=== PATIENT | male | born 1955 | race Caucasian/White ===

== ENCOUNTER → 2020-11-15 15:41 | Outpatient (CLI) | payer OTHER, SELFPAY ==
--- NOTE | ~2020-11-15 | CT_ITS ---
EXAMINATION: CT lung screening DATE: 11/15/2020 15:56 INDICATION: Personal history of tobacco dependence, current smoker with 50 pack year history TECHNIQUE: Computed tomography (CT) of the chest was performed without intravenous contrast. The dose -length product (DLP) was 184.31 mGy-cm. Automated exposure control and iterative reconstruction tech [employer] were employed. COMPARISON: None FINDINGS: There is mild emphysema. There are scattered small nodules with an upper lung zone predomin ance. The largest measures 3 mm in the right upper lobe on image 30. The lungs are free of acute opac ities. There is no pleural effusion or pneumothorax. Moderate thoracic spondylosis is noted. There is calcified coronary artery atherosclerosis. There is atrophy of the left kidney. IMPRESSION: 1. Lung-RADS category 2S: Benign appearance or behavior. Continue annual screening with noncontrast l ow-dose chest CT in 12 months. 2. Left kidney atrophy. Reviewed, dictated and finalized at location A. IMPRESSION: 1. Lung-RADS category 2S: Benign appearance or behavior. Continue annual screen ing with noncontrast low-dose chest CT in 12 months. 2. Left kidney atrophy.
== END ==
PROVIDERS: PCP Physician Assistant; Visit Provider Physician Assistant
DX: Z12.2 Encounter for screening for malignant neoplasm of respiratory organs (principal); Z87.891 Personal history of nicotine dependence
CPT/HCPCS: 71271

== ENCOUNTER 2024-01-03 12:00 | Outpatient (CLI) | payer MEDICARE, SELFPAY ==
[2024-01-03 13:01] LABS: Appearance Urine Clear (Clear); Bacteria Urine None Seen /hpf; Bilirubin Urine Negative (Negative); Blood Urine Negative (Negative); Color Urine Yellow (Yellow); Glucose Urine UA Negative (Negative); Ketones Urine Negative (Negative); Leukocyte Esterase Ur Negative LEU/UL (Negative); Nitrate Urine Negative (Negative); Non Pathogenic Casts 0-2; Protein Urine Trace mg/dL (Negative); RBC Urine 0-2 /hpf (0-2); Specific Grav Ur 1.023 (1.001-1.035); Squamous Epithelial Cell Urine None Seen /hpf (Few); Urobilinogen Urine 0.2 mg/dL (<2.0); WBC Urine 0-5 /hpf (0-3)
[2024-01-03 13:07] LABS: Add Urine Microscopic? YES
[2024-01-03 13:15] LABS: Hematocrit 40.6 % (42.0-52.0); Hemoglobin 13.2 g/dL (14.0-18.0); Mean Corpuscular HGB Conc 32.5 g/dl (32-36); Mean Corpuscular Hemoglobin 28.1 pg (26-34); Mean Corpuscular Volume 86.4 fl (80-100); Mean Platelet Volume 10.2 fl (7.4-10.4); Platelet Count Result 266 k/mm3 (150-375); Red Cell Distribution Width 13.3 % (11.5-14.5); White Blood Count 10.7 K/mm3 (4.5-10.0)
[2024-01-03 13:17] LABS: Creatinine Urine 199.8 mg/dL; Total Protein Urine Random 8 mg/dL; Ur Ttl Prot Creatinine Ratio 0.04 mg/mg (0-0.20)
[2024-01-03 13:38] LABS: Albumin Level 4.5 g/dL (3.5-5.1); Anion Gap 11 mmol/L (4-12); Blood Urea Nitrogen 20 mg/dL (9-20); Calcium 9.3 mg/dL (8.4-10.2); Carbon Dioxide 22 mmol/L (22-30); Chloride 106 mmol/L (98-107); Creatine Kinase 56 U/L (55-170); Estimated Glomerular Filt Rate 51; Glucose 134 mg/dL (65-110); Phosphorus 3.7 mg/dL (2.5-4.5); Potassium 4.2 mmol/L (3.4-5.0); Sodium 139 mmol/L (137-145)
[2024-01-03 14:00] LABS: Complement C3 154 mg/dL (88-165)
[2024-01-03 14:05] LABS: Erythrocyte Sedimentation Rate 24 mm/hr (0-20)
[2024-01-04 12:04] LABS: Kappa\\Lambda Light Chains 1.39 (0.26-1.65); Lambda Light Chain 22.6 mg/L (5.7-26.3)
[2024-01-05 14:19] LABS: Complement Total CH50 >60 U/mL (31-60)
[2024-01-11 22:13] LABS: Immunofixation, Serum Normal pattern.
== END 2024-01-03 12:01 | disposition home or self-care (01) ==
PROVIDERS: PCP Internal Medicine; Visit Provider Internal Medicine Nephrology
DX: N18.31 Chronic kidney disease, stage 3a (principal); R93.89 Abnormal findings on diagnostic imaging of other specified body structures
CPT/HCPCS: 36415; 80069; 81001; 82550; 82570; 83883; 83970; 84156; 85027; 85652; 86038; 86160; 86162; 86334

== ENCOUNTER 2024-01-05 12:05 | Outpatient (CLI) | payer MEDICARE, SELFPAY ==
[2024-01-05 14:50] LABS: Total Volume 24 Hour Urine 1500 ml; Urea Nitrogen 24 Hour Urine 9.7 G/DAY (12-20)
== END 2024-01-05 12:06 | disposition home or self-care (01) ==
PROVIDERS: PCP Internal Medicine; Visit Provider Internal Medicine Nephrology
DX: N18.31 Chronic kidney disease, stage 3a (principal)
CPT/HCPCS: 81050; 84540; 86335

== ENCOUNTER 2025-07-09 12:57 | Outpatient (CLI) | payer OTHER, SELFPAY ==
--- NOTE | 2025-07-09 14:59 | WPDSIXMINUTE ---
Six Minute Walk Procedure Procedure Performed Pulmonary Stress Test (6 min walk) Six Minute Walk Six Minute Walk: This is a 6 minute walk test. The test was performed and interpreted in accordance with the 2014 ERS/ATS task force guidelines. Findings: The patient's resting room air oxygen saturation measured by pulse oximetry was 95%, the heart rate was 73 bpm, and the modified Bandar dyspnea score was 1. Patient ambulated for 320 meters and oxygen saturation remained 90 to 92%. At the end of the study the heart rate was 106 bpm and the modified Bandar dyspnea score was 2. The patient did not qualify for supplemental oxygen at rest or with ambulation. There are no prior studies for comparison.
--- NOTE | 2025-07-09 15:00 | WPDPFTINT ---
PFT Procedure Performed PFT Procedure Performed Spirometry with Pre/Post Bronchodilator Plethysmography (Lung Vol) Diffusing Cap (DLCO) Flow Vol Loop PFT Interpretation This is a pulmonary function test with pre and post-bronchodilator spirometry, plethysmography and diffusing capacity. The test was performed and results interpreted in accordance with the 2019 and 2005 ATS/ERS Task Force guidelines respectively using the Global Lung Function Initiative-2012 reference equations. Patient demonstrated good effort and cooperation. Reproducibility criteria were met. The quality of the pre bronchodilator spirometry maneuver was Grade A and post bronchodilator spirometry maneuver was Grade A. Findings: Spirometry: There is decreased maximal expiratory airflow at all lung volumes with concave expiratory flow tracing. The contour the inspiratory flow tracing is normal. The pre bronchodilator FVC is 3.17 L, 71% predicted. The pre bronchodilator FEV1 is 1.47 L, 44% predicted. The pre bronchodilator FEV1: FVC ratio is 46%. The post bronchodilator FVC is 3.32 L, representing a 5% increase. The post bronchodilator FEV1 is 1.53 L, representing a 4% increase. The post bronchodilator FEV1: FVC ratio is 46%. Plethysmography: The total lung capacity is 7.42 L, 103% predicted. The functional residual capacity is 5.58 L, 146% predicted. The residual volume is 4.05 L, 165% predicted. The residual volume: Total lung capacity ratio is 55%. Diffusing capacity: The diffusing capacity unadjusted for hemoglobin and carboxyhemoglobin is 11.1, 41% predicted. The diffusing capacity adjusted for alveolar volume is 2.19, 56% predicted. Impression: There is a severe obstructive abnormality. There is no significant improvement after inhaling a single dose of albuterol. The increase in residual volume to total lung volume ratio is consistent with hyperinflation from an obstructive abnormality. The diffusing capacity unadjusted for hemoglobin and carboxyhemoglobin is moderately decreased and remains moderately decreased when adjusted for alveolar volume. There are no prior studies for comparison
== END 2025-07-09 12:58 | disposition home or self-care (01) ==
PROVIDERS: PCP Internal Medicine; Visit Provider Internal Medicine
DX: R94.2 Abnormal results of pulmonary function studies (principal); J44.9 Chronic obstructive pulmonary disease, unspecified
CPT/HCPCS: 94618